=== PATIENT | male | born 1995 | race Caucasian/White ===

== ENCOUNTER 2022-12-29 07:05 | Emergency (ER) | payer OTHER, SELFPAY ==
[2022-12-29] VITALS (10 sets, daily range): BP systolic 111–150; BP diastolic 68–104; PULSE 50–85; RESP 16–18; TEMP 36.9; O2SAT 94–100; BMI 27.0
--- NOTE | 2022-12-29 07:20 | CT_ITS ---
PROCEDURE INFORMATION: Exam: CT Abdomen And Pelvis With Contrast Exam date and time: 12/29/2022 8:13 AM Age: 27 years old Clinical indication: Nausea and vomiting; Additional info: N/v, no bm, history of total colectomy TECHNIQUE: Imaging protocol: Computed tomography of the abdomen and pelvis with contrast. Radiation optimization: All CT scans at this facility use at least one of these dose optimization techniques: automated exposure control; mA and/or kV adjustment per patient size (includes targeted exams where dose is matched to clinical indication); or iterative reconstruction. Contrast material: ISOVUE; Contrast volume: 75 ml; Contrast route: IV; REPORTING DATA: Count of CT and Cardiac NM exams in prior 12 months: This patient has received 0 known CTs and 0 known cardiac nuclear medicine studies in the 12 months prior to the current study. COMPARISON: No relevant prior studies available. FINDINGS: Liver: Normal. No mass. Gallbladder and bile ducts: Normal. No calcified stones. No ductal dilation. Pancreas: Normal. No ductal dilation. Spleen: Normal. No splenomegaly. Adrenal glands: Normal. No mass. Kidneys and ureters: The kidneys enhance symmetrically and there is no hydronephrosis. Stomach and bowel: The patient appears to be post colectomy with dilated liquid filled distal small bowel to a level just above the rectal anastomosis. Appendix: No evidence of appendicitis. Intraperitoneal space: Unremarkable. No free air. No significant fluid collection. Vasculature: Unremarkable. No abdominal aortic aneurysm. Lymph nodes: Unremarkable. No enlarged lymph nodes. Urinary bladder: The urinary bladder is contracted. Reproductive: Unremarkable as visualized. Bones/joints: Unremarkable. No acute fracture. Soft tissues: Unremarkable. IMPRESSION: Postsurgical change as described. Dilatation of distal small bowel loops is nonspecific, could be physiologic. Distal stricture can not be entirely excluded.
--- NOTE | 2022-12-29 07:24 | [facility].EDGENADL ---
Discharge Plan Disposition Chief Complaint: Nausea/Vomiting/Diarrhea Referrals Follow up/Referrals: Provider,Referral, [Primary Care Provider] - See instructions Clinical Impressions Clinical Impression: Bowel obstruction Instructions Patient Instructions: DI for Diarrhea and Traveler's Diarrhea -- Adult, DI for Diarrhea and Traveler's Diarrhea -- Child, DI for Nausea -- Adult, DI for Nausea -- Child Discharge ED Provider: Nugyen Mireles General Adult HPI General Chief complaint: Nausea/Vomiting/Diarrhea Stated complaint: vomiting Time Seen by Provider: 12/29/22 07:19 History of Present Illness HPI narrative: Patient is a 27-year-old male presenting today with nausea and vomiting over the last 3 days with decreased bowel movements. States has had no bowel movement during this time but has significant abdominal pain associated with this. Has a history of a total colectomy performed [address] Stormy martinez at [facility]. 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 States that this was done prophylactically and never developed cancer. He had a colostomy for extended period of time that has been reversed. States he typically has loose bowel movements on a daily basis and this is a significant change in his frequency. Does not have a history of bowel obstructions. No other medical problems. No fevers or chills or any other symptoms. Related Data Allergies Allergy/AdvReac Type Severity Reaction Status Date / Time NO KNOWN ALLERGIES Allergy Uncoded 02/12/17 15:[address] [facility] Disclaimer: The information contained in this section may have been updated after the patient was seen, as this information can be updated by other users. Social History Smoking Status: Never smoker alcohol intake: never current occupational status: other Travel in the last 8 weeks: None ROS Obtained: Yes All systems reviewed & no additional complaints except as documented Physical Exam General General appearance: alert Respiratory Respiratory exam: Present normal lung sounds bilaterally Cardiovascular Cardiovascular exam: Present regular rate; Absent tachycardia Abdominal Exam Abdominal exam: Present tenderness (Bilateral lower abdominal tenderness without any rebound or guarding, old well-healed incisional scars) Neurological Exam Neurological exam: Present alert and oriented X3 Medical Decision Making Ramon Inquiry Pt receiving controlled substance: No Vital Signs: 12/29/22 07:06 Temperature 98.4 F Temperature Source Oral Pulse Rate [Right Radial] 84 Respiratory Rate 16 Blood Pressure [Right Arm] 150/104 H Blood Pressure Mean [Right Arm] 119 Blood Pressure Source [Right Arm] Automatic Cuff Blood Pressure Position [Right Arm] Sitting 02 Sat by Pulse Oximetry 99 Oxygen Delivery Method Room Air Lab Data Lab results reviewed: Yes I reviewed the patient's lab results. Lab Results 12/29/22 07:31: WBC 13.9 H, RBC 5.15, Hgb 16.4, Hct 46.0, MCV 89.3, MCH 31.9 H, MCHC 35.7 H, RDW 13.5, Plt Count 226, MPV 7.5, Neut % (Auto) 87.7 H, Lymph % (Auto) 6.0 L, [place] % (Auto) 5.9, Eos % (Auto) 0.3, Baso % (Auto) 0.1, Neut # (Auto) 12.2 H, Lymph # (Auto) 0.8, [place] # (Auto) 0.8, Eos # (Auto) 0.0, Baso # (Auto) 0.0, Total Counted 100, Neutrophils % (Manual) 85 H, Lymphocytes % (Manual) 8 L, Monocytes % (Manual) 7, Platelet Estimate Normal, RBC Morphology Normal, Sodium 135 L, Potassium 3.2 L, Chloride 94 L, Carbon Dioxide 30, Anion Gap 14.2, BUN 14, Creatinine 0.90, Estimated Creat Clear 143, Estimated GFR 103, Est GFR ( Amer) 124, Glucose 119 H, Calcium 9.2, Phosphorus 2.5, Magnesium 2.1, Total Bilirubin 1.0, AST 38, ALT 34, Alkaline Phosphatase 88, Total Protein 8.2, Albumin 4.8, Globulin 3.4 H, Albumin/Globulin Ratio 1.4, Lipase 81 12/29/22 07:31 12/29/22 07:31 Orders (Tests/Meds): ED MEDICATIONS Generic Name Dose Route Start Last Admin Trade Na
[2022-12-29 07:42] LABS: Basophils % 0.1 % (0.1-2.0); Eosinophils % 0.3 % (0.1-12.0); Hemoglobin 16.4 g/dL (14.1-18.0); Lymphocytes # 0.8 K/mm3 (0.7-4.5); Mean Corpuscular HGB Conc 35.7 g/dL (31.8-35.4); Mean Corpuscular Hemoglobin 31.9 pg (27.0-31.2); Mean Corpuscular Volume 89.3 fl (80-94); Mean Platelet Volume 7.5 fl (7.4-10.4); Monocytes # 0.8 K/mm3 (0.1-1.0); Monocytes % 5.9 % (1.7-9.3); Neutrophils # 12.2 K/mm3 (1.8-7.8); Neutrophils % 87.7 % (37.0-80.0); Platelet Count 226 K/mm3 (142-424); Red Blood Count 5.15 M/mm3 (4.60-6.20); Red Cell Distribution Width 13.5 % (11.5-17.5); White Blood Count 13.9 K/mm3 (4.8-10.8)
[2022-12-29 07:49] LABS: MANUAL DIFFERENTIAL MANUAL DIFFERENTIAL (MANUAL DIFF)
--- NOTE | 2022-12-29 08:07 | PC.NURSE ---
Pt gone to RAD via wheelchair
[2022-12-29 08:08] LABS: Alanine Aminotransferase 34 U/L (12-78); Albumin Level 4.8 g/dl (3.5-5.0); Albumin/Globulin Ratio 1.4 (1.1-1.8); Alkaline Phosphatase 88 U/L (38-126); Anion Gap 14.2 mEq/L (5-15); Aspartate Amino Transferase 38 U/L (17-59); Blood Urea Nitrogen 14 mg/dl (9-20); Calcium 9.2 mg/dl (8.4-10.2); Carbon Dioxide 30 mmol/L (22.0-30.0); Chloride 94 mmol/L (98-107); Creatinine Clearance Estimated 143 mL/min (50-200); Estimated Glomerular Filt Rate 103 ml/min (>60); GFR (African American) 124 ML/MIN (>60); Globulin 3.4 g/dL (1.3-3.2); Glucose 119 mg/dl (74-100); Lipase 81 U/L (23-300); Magnesium 2.1 mg/dl (1.6-2.3); Phosphorous 2.5 mg/dl (2.5-4.5); Potassium 3.2 mmoL/L (3.5-5.1); Sodium 135 mmol/L (136-145); Total Protein,Serum 8.2 g/dl (6.3-8.2)
[2022-12-29 08:12] LABS: Lymphocytes % 8 % (10-50); Monocytes % 7 % (2-9); Neutrophils % 85 % (42-76); Platelet Estimate Normal; RBC Morphology Normal; Total Cells Counted 100
--- NOTE | 2022-12-29 08:20 | PC.NURSE ---
Pt returned to room from RAD
--- NOTE | 2022-12-29 09:19 | PC.NURSE ---
Dr. Mireles at [facility] to update pt on results and POC
--- NOTE | 2022-12-29 09:19 | PC.NURSE ---
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
--- NOTE | 2022-12-29 09:20 | PC.NURSE ---
Dr. Mireles speaking with Dr. Cox
--- NOTE | 2022-12-29 09:34 | PC.NURSE ---
contacted [facility] for possible transfer
--- NOTE | 2022-12-29 09:34 | PC.NURSE ---
requested radiology power share images to [facility] and make a disc for pt
--- NOTE | 2022-12-29 09:35 | PC.NURSE ---
Dr. Mireles speaking with [facility]
--- NOTE | 2022-12-29 09:37 | PC.NURSE ---
pt accepted to ER for Dr. Florencio Daniel
--- NOTE | 2022-12-29 09:59 | PC.NURSE ---
NG placed to rodolfo hawthorne @ 60. pt tolerated well
--- NOTE | 2022-12-29 10:01 | XR_ITS ---
PROCEDURE INFORMATION: Exam: XR Chest Exam date and time: 12/29/2022 10:20 AM Age: 27 years old Clinical indication: Device placement; Ng tube; Additional info: Ng placement TECHNIQUE: Imaging protocol: Radiologic exam of the chest. Views: 1 view. COMPARISON: CT ABDOMEN PELVIS W CON 12/29/2022 8:13 AM FINDINGS: Tubes, catheters and devices: An enteric catheter extends to the abdomen, its tip overlying left upper quadrant. Lungs: Unremarkable. No consolidation. Pleural spaces: Unremarkable. No pleural effusion. No pneumothorax. Heart/Mediastinum: Unremarkable. No cardiomegaly. Bones/joints: Unremarkable. IMPRESSION: Enteric catheter in place as described.
--- NOTE | 2022-12-29 10:01 | PC.NURSE ---
dr. guevara paz for pt to have a few ice chips, per pt request
--- NOTE | 2022-12-29 10:03 | PC.NURSE ---
xray at [facility]
--- NOTE | 2022-12-29 10:05 | PC.NURSE ---
radiology in place
--- NOTE | 2022-12-29 10:07 | PC.NURSE ---
report called to STALIN Garcia at ER at this time
--- NOTE | 2022-12-29 10:08 | PC.NURSE ---
notified [facility] of transport need to ER- states they have a truck out on a 911 call, when they are freed up they will come to transport this pt.
--- NOTE | 2022-12-29 11:48 | PC.NURSE ---
contacted [facility] to check on status of transfer, states truck should be up here soon for transport.
--- NOTE | 2022-12-29 12:31 | PC.NURSE ---
report given to ems
== END 2022-12-29 12:34 | disposition short-term general hospital (02) ==
PROVIDERS: Emergency Provider Student in an Organized Health Care Education/Training Program
DX: K56.609 Unspecified intestinal obstruction, unspecified as to partial versus complete obstruction (principal); R10.30 Lower abdominal pain, unspecified; R11.2 Nausea with vomiting, unspecified; Z90.49 Acquired absence of other specified parts of digestive tract
CPT/HCPCS: 71045; 74177; 80053; 83690; 83735; 84100; 85007; 85025; 96361; 96374; 96375; 96376; 99285; J2405; Q9967